=== PATIENT | female | born 1990 | race Two or more races ===

== ENCOUNTER 2022-06-01 18:31 | Emergency (ER) | payer BC ==
[~2022-06-01] VITALS: Ht 157.5 cm; Wt 136.5 kg
[2022-06-01 19:36] VITALS: BP 150/109
[2022-06-01 20:28] LABS: Urine Amorphous Crystal FEW /hpf (None Seen); Urine Bacteria FEW /hpf (None Seen); Urine Blood 3+ /uL (Negative); Urine Mucus FEW (None Seen); Urine Specific Gravity 1.023 (1.001-1.035); Urine WBC <1 /hpf (0 - 5)
== END 2022-06-01 23:48 | disposition left against medical advice (07) ==
LOC: ER 18:34
DX: N93.9 Abnormal uterine and vaginal bleeding, unspecified (principal); Z53.21 Procedure and treatment not carried out due to patient leaving prior to being seen by health care provider
CPT/HCPCS: 81001; 81025